=== PATIENT | female | born 1950 | race Caucasian/White ===

== ENCOUNTER 2022-02-22 09:23 | Day surgery (SDC) | payer MEDICARE, OTHER ==
[~2022-02-22] VITALS: Ht 157.5 cm; Wt 42.3 kg
[~2022-02-22 09:23] MED LIST: ATOR10 PO; Aspir 8181 MG PO; BRINTELLIX5 MG PO; BUTASPCAF PO; CIPRO; CONEST.625; Endocet 7.5-321 EACH PO; OXYACE5T PO; PRILOSEC
--- NOTE | 2022-02-22 09:51 | NUR ---
02/22/22 0951 PAKO CUETO TETRACAINE DROP INSTILLED AT 0948 PLEDGETT INSERTED AT 0951
[2022-02-22] MEDS ORDERED: CITALOPRAM HBR PO (09:54)
[2022-02-22] MEDS ORDERED: CELE200 (09:55)
[2022-02-22] MEDS ORDERED: ESGIC 50-325-41 EACH (09:55)
[2022-02-22] MEDS ORDERED: Percocet 10-321 EACH PO (09:55)
== END 2022-02-22 11:10 | disposition home or self-care (01) ==
LOC: ORSCSDS 09:23
PROVIDERS: Ophthalmology
PROC: 08RJ3JZ Replacement of Right Lens with Synthetic Substitute, Percutaneous Approach (ICD-10-PCS; principal; 2022-02-22 10:30)
DX: H25.13 Age-related nuclear cataract, bilateral (principal); Z87.891 Personal history of nicotine dependence; Z79.899 Other long term (current) drug therapy
CPT/HCPCS: J2001; J2250; J3010; J3301; J7040; V2632

== ENCOUNTER 2022-03-03 11:27 | Day surgery (SDC) | payer MEDICARE, OTHER ==
[~2022-03-03] VITALS: Ht 157.5 cm; Wt 41.0 kg
[~2022-03-03 11:27] MED LIST changes: +CELE200; +CITALOPRAM HBR PO; +ESGIC 50-325-41 EACH; +Percocet 10-321 EACH PO
== END 2022-03-03 13:20 | disposition home or self-care (01) ==
LOC: ORSCSDS 11:27
PROVIDERS: Ophthalmology
PROC: 08RJ3JZ Replacement of Right Lens with Synthetic Substitute, Percutaneous Approach (ICD-10-PCS; principal; 2022-03-03 13:00)
DX: H25.12 Age-related nuclear cataract, left eye (principal); Z79.899 Other long term (current) drug therapy
CPT/HCPCS: J2001; J2250; J3010; J3301; J7040; V2632